=== PATIENT | female | born 1965 ===

== ENCOUNTER 2020-05-18 23:23 | Inpatient (IN) | payer OTHER ==
[~2020-05-18] VITALS: Ht 160 cm; Wt 68.0 kg
[2020-05-18] MEDS ORDERED: LEVOFLOXACIN750 MG (23:35)
[2020-05-18] MEDS ORDERED: FLAGYL500MG (23:35)
[2020-05-27] MEDS ORDERED: CARAFATE1 GM PO (07:14)
[2020-05-27] MEDS ORDERED: ULTRAM50 MG PO (07:14)
[2020-05-27] MEDS ORDERED: TYLENOL ARTHRI650 MG PO (07:14)
[2020-05-27] MEDS ORDERED: PROTONIX20 MG PO (07:14)
== END 2020-05-27 17:06 | disposition home or self-care (01) | DRG 419 ==
LOC: ER 23:23 → SEC-K 05-19 13:00 → EDBD 05-19 13:00 → MEDI 05-19 13:00
PROVIDERS: Surgery; ADMIT Internal Medicine; ATTEND Internal Medicine
PROC: BW40ZZZ Ultrasonography of Abdomen (ICD-10-PCS; 2020-05-19)
PROC: BF37ZZZ Magnetic Resonance Imaging (MRI) of Pancreas (ICD-10-PCS; 2020-05-20)
PROC: 0FC98ZZ Extirpation of Matter from Common Bile Duct, Via Natural or Artificial Opening Endoscopic (ICD-10-PCS; 2020-05-24)
PROC: BF10YZZ Fluoroscopy of Bile Ducts using Other Contrast (ICD-10-PCS; 2020-05-24)
PROC: BF532Z0 Other Imaging of Gallbladder and Bile Ducts using Fluorescing Agent, Intraoperative (ICD-10-PCS; 2020-05-26)
PROC: 3E1M38Z Irrigation of Peritoneal Cavity using Irrigating Substance, Percutaneous Approach (ICD-10-PCS; 2020-05-26)
PROC: 0FT44ZZ Resection of Gallbladder, Percutaneous Endoscopic Approach (ICD-10-PCS; principal; 2020-05-26 10:30)
DX: K80.62 Calculus of gallbladder and bile duct with acute cholecystitis without obstruction (principal); E86.0 Dehydration; Z20.822 Contact with and (suspected) exposure to COVID-19; E87.6 Hypokalemia